=== PATIENT | female | born 1935 | race Caucasian/White ===

== ENCOUNTER → 2016-12-06 | Outpatient (CLI) | payer MEDICARE | END | disposition home or self-care (01) | LOC: GMAJ 10:30 | PROVIDERS: ATTEND Family Medicine | DX: E03.9 Hypothyroidism, unspecified (principal); E53.9 Vitamin B deficiency, unspecified ==

== ENCOUNTER → 2017-12-26 | Outpatient (CLI) | payer MEDICARE | LOC: GMAJ 11:06 | PROVIDERS: ATTEND Family Medicine | DX: E03.9 Hypothyroidism, unspecified (principal); E53.8 Deficiency of other specified B group vitamins ==

== ENCOUNTER → 2018-07-11 | Outpatient (CLI) | payer MEDICARE | LOC: GMAJ 10:31 | PROVIDERS: ATTEND Family Medicine | DX: E53.8 Deficiency of other specified B group vitamins (principal); E03.9 Hypothyroidism, unspecified ==

== ENCOUNTER → 2019-04-18 | Outpatient (CLI) | payer MEDICARE | LOC: GMAJ 11:03 | PROVIDERS: ATTEND Family Medicine | DX: E53.8 Deficiency of other specified B group vitamins (principal); E03.9 Hypothyroidism, unspecified; E78.00 Pure hypercholesterolemia, unspecified ==

== ENCOUNTER → 2019-10-30 | Outpatient (CLI) | payer MEDICARE | LOC: GMAJ 10:20 | PROVIDERS: ATTEND Family Medicine | DX: E53.8 Deficiency of other specified B group vitamins (principal); E03.9 Hypothyroidism, unspecified; E78.00 Pure hypercholesterolemia, unspecified ==

== ENCOUNTER 2020-04-23 10:46 | Observation (INO) | payer OTHER ==
--- NOTE | 2020-04-23 10:46 | HP ---
SUPERVISING PHYSICIAN: Lamonte Muir M.D. CHIEF COMPLAINT: Nausea and vomiting with weakness. HISTORY OF PRESENT ILLNESS: This is an 84 year-old female patient that was in her usual state of health. Her is in a local half-way. She had contact with a caregiver that fed her at the half-way. Her is COVID-19 positive. Over the last week or so she has had contact with them, although both have worn masks and he was diagnosed about 10 days ago with COVID- 19. About 3 or 4 days ago, the patient experienced some nausea and vomiting and extreme weakness. She did notice that she has lost over 10 pounds in the last week to 10 days. Yesterday she called her primary care physician, Dr. Lamonte Muir, who recommended that she be COVID tested. She tested positive yesterday at [facility]. A Telemedicine visit was done this morning and the patient was very weak. She continued to have some nausea and vomiting. She was unable to even sit on the side of the bed. Dr. Muir also spoke with her son and said that she has been progressively worsening over the last few days, so she was sent to the hospital as a direct admission. PAST MEDICAL HISTORY: 1. SVT. 2. Hypothyroidism. 3. Osteoporosis. 4. Gastroesophageal reflux disease. 5. Depression. PAST SURGICAL HISTORY: 1. LEEP procedure. 2. Cataract removal. CURRENT MEDICATIONS: ALLERGIES: NO KNOWN DRUG ALLERGIES. FAMILY HISTORY: Noncontributory. SOCIAL HISTORY: She is retired. She is . She has 2 children. She denies any tobacco, ETOH or illicit drug use. REVIEW OF SYSTEMS: GENERAL: Positive for chills, night sweats and fatigue. Positive for 10 pound weight loss over the last week. HEENT: Negative for sinus symptoms, ear pain, vision changes or sore throat. She is positive for an inability to taste or smell. RESPIRATORY: Positive for mild shortness of breath. Negative for coughing or wheezing. CARDIAC: Negative for chest pain, palpitations or tachycardia. GASTROINTESTINAL: Positive for nausea and vomiting. Negative for diarrhea or constipation. GENITOURINARY: Negative for hematuria, dysuria or polyuria. SKIN: Negative for lesions or rashes. NEUROLOGIC: Positive for extreme weakness. Negative for headaches or seizures. PHYSICAL EXAMINATION: VITAL SIGNS: Unavailable. GENERAL: This is an 84 year-old female patient who looks to be moderately ill, but she does look younger than her stated age. HEENT: Normocephalic, atraumatic. Pupils are equal and reactive. Oropharynx is clear. NECK: Supple without mass. RESPIRATORY: Diminished breath sounds throughout. CHEST: There is equal rise and fall of the chest with inspiration and expiration. CARDIOVASCULAR: Regular rate and rhythm. GASTROINTESTINAL: Abdomen is soft. It is mildly but diffusely tender. Bowel sounds are positive. GENITOURINARY: Deferred. SKIN: Warm and dry. NEUROLOGIC: Awake, alert and oriented times three. LABORATORY: WBCs are 3.7 with hemoglobin 13.7, hematocrit 41. Absolute lymphocytes are 0.9. PT 9.8, INR is less than 1, PTT is 26.2, fibrinogen 359, D-dimer 497. Electrolytes are basically within normal limits. Ferritin is 56.7. LDH is 114, CPK 28, troponin less than 0.02, CRP is 0.9 with a BNP of 28. Blood cultures have been done. Chest x-ray shows normal portable chest. ASSESSMENT: 1. Positive COVID-19 with lymphopenia and low WBC and an elevated D-dimer of 497. 2. Nausea and vomiting with loss of smell and taste. She has also had a weight loss of over 10 pounds in the last week. 3. Hypothyroidism. 4. Gastroesophageal reflux disease. 5. Depression. PLAN: The patient has been admitted to the hospital. We will continue on the COVID guidelines, including daily lab as well as azithromycin and Rocephin. She will also get Decadron 6 mg daily. She will be on Lovenox 40 mg daily. She will be on a full liquid diet and NPO at midnight as I will do a CTA and a CT of her abdomen and pelvis tomorrow morning. I will give her some judicious fluids overnight and repeat her labs in the morning. I have also put her on some Xopenex p.r.n. treatments. Will encourage incentive spirometry as well as good pulmonary hygiene. She has antiemetics. Will continue to monitor closely and follow as needed. #[id number] [facility]
[2020-04-23] MEDS ORDERED: SODIUM CHLORIDE 0.9% (FLUSH) 10 ML SYG IV PRN (11:30)
--- NOTE | 2020-04-23 12:02 | RAD ---
EXAM DESCRIPTION: Chest,1 View CLINICAL HISTORY: Pneumonia COMPARISON: 07 Mar 2015, 16 November 2018 TECHNIQUE: AP portable chest FINDINGS: The lungs are clear. There is no infiltrate or effusion. The heart is normal size. IMPRESSION: Normal portable chest Electronically signed by: Jose Rizo MD 04/23/2020 12:00 PM CDT
[2020-04-23] MEDS: IV SET AND CAP CHANGE INJ INJ SCH (12:43)
[2020-04-23] MEDS: ENOXAPARIN SODIUM 40 MG/0.4 ML SYG SUBCU SCH (13:01)
[2020-04-23] MEDS: cefTRIAXone SODIUM 1 GM in SODIUM CHL 0.9% 50ML MIN-BAG+ 50 ML IVPB SCH (13:01)
[2020-04-23] MEDS: DEXAMETHASONE INJ 10 MG/ML VIAL IV SCH (13:01)
[2020-04-23] MEDS: AZITHROMYCIN IV 500 MG in SODIUM CHLORIDE 0.9% 250ML 250 ML IVPB SCH (13:47)
[2020-04-23] MEDS ORDERED: ONDANSETRON INJ 4 MG/2 ML VIAL IV PRN (15:57)
[2020-04-23] MEDS ORDERED: ACETAMINOPHEN 325 MG TAB PO PRN (15:58)
[2020-04-23] MEDS ORDERED: KCL 20MEQ/0.45% NS 1,000 ML IVS ONE (18:53)
[2020-04-23] MEDS ORDERED: GABAPENTIN 300 MG CAP ONE (19:35)
[2020-04-23] MEDS: GABAPENTIN 300 MG CAP PO SCH (21:29)
[2020-04-24] MEDS ORDERED: LEVOTHYROXINE SODIUM 0.112 MG TAB ONE (04:34)
[2020-04-24] MEDS ORDERED: PANTOPRAZOLE SODIUM IV 40 MG VIAL ONE (04:34)
[2020-04-24] MEDS: PANTOPRAZOLE SODIUM IV 40 MG VIAL IV SCH (06:13)
[2020-04-24] MEDS: LEVOTHYROXINE SODIUM 0.112 MG TAB PO SCH (06:13)
--- NOTE | 2020-04-24 06:56 | RAD ---
EXAM: XR Chest, 1 View CLINICAL HISTORY: Pneumonia TECHNIQUE: Frontal view of the chest. COMPARISON: 04/23/2020. FINDINGS: Lungs: Stable interstitial scarring. No consolidation. Pleural space: Unremarkable. No pneumothorax. Heart: Unremarkable. No cardiomegaly. Mediastinum: Unremarkable. Bones/joints: Unremarkable. IMPRESSION: No acute findings in the chest. Electronically signed by: Nettie Sanchez MD 04/24/2020 6:54 AM CDT
--- NOTE | 2020-04-24 07:00 | CT ---
EXAM: CT Abdomen and Pelvis With Intravenous Contrast CLINICAL HISTORY: n/v; wt loss; covid-19 TECHNIQUE: Axial computed tomography images of the abdomen and pelvis with intravenous contrast. Sagittal and coronal reformatted images were created and reviewed. This CT exam was performed using one or more of the following dose reduction techniques: automated exposure control, adjustment of the mA and/or kV according to patient size, and/or use of iterative reconstruction technique. COMPARISON: No relevant prior studies available. FINDINGS: Lung bases: Linear scarring in the left lung base. ABDOMEN: Liver: Granulomata in the liver. Gallbladder and bile ducts: Unremarkable. No calcified stones. No ductal dilation. Pancreas: Unremarkable. No mass. No ductal dilation. Spleen: Granulomata in the spleen. Adrenals: Unremarkable. No mass. Kidneys and ureters: Tiny cortical cysts in each kidney. No hydronephrosis. Stomach and bowel: Moderate colonic stool. No inflammatory process or obstruction. No mucosal thickening. PELVIS: Appendix: No findings to suggest acute appendicitis. Bladder: Unremarkable. No mass. Reproductive: Unremarkable as visualized. ABDOMEN and PELVIS: Intraperitoneal space: Unremarkable. No free air. No significant fluid collection. Bones/joints: Degenerative changes present in the spine. The bones are demineralized. No acute fracture. No dislocation. Soft tissues: Unremarkable. Vasculature: Atherosclerosis. No aneurysm or dissection. Lymph nodes: Unremarkable. No enlarged lymph nodes. IMPRESSION: Chronic changes as above. No acute disease. Electronically signed by: Nettie Sanchez MD 04/24/2020 6:59 AM CDT
--- NOTE | 2020-04-24 07:03 | CT ---
CT angiogram chest with contrast on 04/24/2020 CLINICAL INDICATION: Abnormal weight loss, COVID 19, nausea and vomiting TECHNIQUE: Multiple axial images are obtained throughout the chest following the administration of IV contrast. Computer generated 3D reconstructions/MIPS were performed. This exam was performed according to our departmental dose-optimization program, which includes automated exposure control, adjustment of the mA and/or kV according to patient size and/or use of iterative reconstruction technique. Total DLP is 586.18 mGy*cm. COMPARISON: None FINDINGS: There is no thoracic aortic aneurysm or dissection. There is no pleural or pericardial effusion. Limited visualized upper abdomen is unremarkable. There is no thoracic adenopathy. There are no filling defects within the pulmonary arteries to suggest pulmonary embolus. Mild biapical pulmonary scarring is noted. There is minimal bibasilar atelectasis or scarring. The lungs are otherwise clear. No acute bony abnormality is noted. IMPRESSION: 1. No evidence of pulmonary embolus. 2. No CT findings to indicate pneumonia. Note: CT may be negative in the early stages of COVID 19 pneumonia. [PneNeg] Electronically signed by: Tanmay Lr 04/24/2020 7:01 AM CDT
[2020-04-24] MEDS ORDERED: MAGNESIUM HYDROXIDE 30 ML UD PO ONE (08:12)
[2020-04-24] MEDS: CITALOPRAM HBR 20 MG TAB PO SCH (08:59)
[2020-04-24] MEDS: DEXAMETHASONE INJ 10 MG/ML VIAL IV SCH (09:00)
[2020-04-24] MEDS ORDERED: LEVALBUTEROL NEBS 1.25 MG/3 ML VIAL NEB PRN ×2 (12:27→12:28)
[2020-04-24] MEDS ORDERED: MORPHINE SULFATE INJ 10 MG/ML VIAL IV PRN (12:35)
[2020-04-24] MEDS ORDERED: SCOPOLAMINE PATCH 1.5MG 1 EA TD PRN (12:36)
[2020-04-24] MEDS ORDERED: PROMETHAZINE HCL INJ 25 MG in SODIUM CHLORIDE 0.9% 50ML 50 ML IVPB PRN (12:36)
[2020-04-24] MEDS: ENOXAPARIN SODIUM 40 MG/0.4 ML SYG SUBCU SCH (12:44)
[2020-04-24] MEDS: cefTRIAXone SODIUM 1 GM in SODIUM CHL 0.9% 50ML MIN-BAG+ 50 ML IVPB SCH (12:44)
[2020-04-24] MEDS: AZITHROMYCIN IV 500 MG in SODIUM CHLORIDE 0.9% 250ML 250 ML IVPB SCH (13:20)
[2020-04-24] MEDS: GABAPENTIN 300 MG CAP PO SCH (21:24)
[2020-04-25] MEDS: PANTOPRAZOLE SODIUM IV 40 MG VIAL IV SCH (05:39)
[2020-04-25] MEDS: LEVOTHYROXINE SODIUM 0.112 MG TAB PO SCH (05:39)
[2020-04-25] MEDS: DEXAMETHASONE INJ 10 MG/ML VIAL IV SCH (08:21)
[2020-04-25] MEDS: CITALOPRAM HBR 20 MG TAB PO SCH (08:21)
--- NOTE | 2020-04-25 09:01 | PN ---
SUPERVISING PHYSICIAN: Lamonte Muir MD DATE: 04/24/20 SUBJECTIVE: The patient is sitting up in her bed. She still looks rather weak and has continued complaints of extremely weakness, although she is slightly improved from yesterday. She has no shortness of breath, nausea or vomiting. OBJECTIVE: VITAL SIGNS: Temperature 98.3, heart rate 73, blood pressure 109/60, respiratory rate 19, oxygen saturation 95% on room air. RESPIRATORY: Essentially clear to auscultation bilaterally. CARDIAC: Regular rate and rhythm. GI: Abdomen soft, slightly and diffuse tender over the upper regions of her abdomen. Bowel sounds are positive. NEUROLOGIC: She is awake, alert, and oriented x3. LABORATORY: CBC is basically unremarkable except she has a left shift on her differential. D-dimer is improved to 270. Fibrinogen is 366. Chemistries are basically within normal limits. Preliminary blood cultures show no growth after 24 hours. Chest and thorax CTA: 1. No evidence of pulmonary embolus. 2. No CT findings to indicate pneumonia but CT may be negative and in the early stages of Covid-19. Abdomen and pelvis CT shows chronic changes seen in the report. No acute disease. Chest x-ray shows no acute findings. All other labs and films have been reviewed via the EMR. ASSESSMENT: 1. Positive COVID-19 with lymphopenia and low WBC and an elevated D-dimer of 497. 2. Nausea and vomiting with loss of smell and taste. She has also had a weight loss of over 10 pounds in the last week. 3. Hypothyroidism. 4. Gastroesophageal reflux disease. 5. Depression. PLAN: We will continue present supportive care. The patient is still very weak and her symptoms have only slightly improved. We will need to monitor her closely over the next few days. She has no longer had any nausea or vomiting but she is still quite tender in her abdomen. Due to her Covid-19 status, we will watch patient closely over the next few days. We will continue aggressive pulmonary hygiene and continue the Covid-19 guidelines and will monitor closely and follow as needed. [facility][id number] [facility]
[2020-04-25] MEDS: cefTRIAXone SODIUM 1 GM in SODIUM CHL 0.9% 50ML MIN-BAG+ 50 ML IVPB SCH (12:01)
[2020-04-25] MEDS: ENOXAPARIN SODIUM 40 MG/0.4 ML SYG SUBCU SCH (12:01)
[2020-04-25] MEDS: AZITHROMYCIN IV 500 MG in SODIUM CHLORIDE 0.9% 250ML 250 ML IVPB SCH (13:01)
[2020-04-25] MEDS: GABAPENTIN 300 MG CAP PO SCH (21:21)
[2020-04-26] MEDS: LEVOTHYROXINE SODIUM 0.112 MG TAB PO SCH (05:56)
[2020-04-26] MEDS: PANTOPRAZOLE SODIUM IV 40 MG VIAL IV SCH (05:56)
--- NOTE | 2020-04-26 08:36 | PN ---
SUPERVISING PHYSICIAN: Lamonte Muir MD DATE: 04/25/20 SUBJECTIVE: Unfortunately, the patient's passed this morning form complications of Covid-19. Considering everything that has been done, has been fairly well. She is scared to go home because she has remained in isolation and is still having a little bit of diarrhea and is quite weak actually. Otherwise, she has no other complaints. OBJECTIVE: VITAL SIGNS: Temperature 98, heart rate 60, blood pressure 116/52, respiratory rate 18, oxygen saturation 97% on room air. GENERAL: The patient does not look to be in any distress. She does look exhausted, simply just because of the event that occurred this morning. Otherwise, she does not look to be in any acute distress. RESPIRATORY: Lung sounds are fairly clear, a little diminished toward the bases. CARDIAC: Regular rate and rhythm. GI: Abdomen soft, still a little the next several days on the upper regions, across left and right. Bowel sounds are positive. NEUROLOGIC: She is awake, alert, and oriented x3. LABORATORY: CBC shows a white count yesterday of 6,000 with a slight left shift. Coagulation studies yesterday did show a D-dimer that was down to 270 from 497 previously. Electrolytes within normal limits with creatinine of 0.56. RADIOLOGY: No additional radiographic studies this morning. I did review the chest CTA from yesterday which did show per radiology interpretation, no evidence of pulmonary embolus, no actual findings to indicate pneumonia. ASSESSMENT: 1. Positive COVID-19 with lymphopenia, neutropenia, elevated D-dimer associated GI symptoms. 2. Nausea and vomiting with some weight loss over the last week of about 10 pounds. 3. Hypothyroidism on supplementation. 4. Gastroesophageal reflux disease. 5. Depression. PLAN: At this point, the patient is a little weak and considering her passed this morning, she certainly a little emotional. I have no plans to discharge her probably until at least Monday given the event that occurred and the fact that she will still remain in isolation and there is no family to help her at home and she is in early stages of possible Covid pneumonia more based off her event today with close monitoring. In regard to GI symptoms, she is a little bit tender but not having any nausea or vomiting. She has tolerated a diet. I did advance her diet this afternoon and she did okay with that. Until we can transition her to outpatient management, we will continue to monitor and treat as needed. [facility][id number] [facility]
[2020-04-26] MEDS: DEXAMETHASONE INJ 10 MG/ML VIAL IV SCH (08:37)
[2020-04-26] MEDS: CITALOPRAM HBR 20 MG TAB PO SCH (08:37)
[2020-04-26] MEDS: ENOXAPARIN SODIUM 40 MG/0.4 ML SYG SUBCU SCH (12:02)
[2020-04-26] MEDS: cefTRIAXone SODIUM 1 GM in SODIUM CHL 0.9% 50ML MIN-BAG+ 50 ML IVPB SCH (12:02)
[2020-04-26] MEDS: IV SET AND CAP CHANGE INJ INJ SCH (12:02)
[2020-04-26] MEDS: AZITHROMYCIN IV 500 MG in SODIUM CHLORIDE 0.9% 250ML 250 ML IVPB SCH (12:55)
[2020-04-26] MEDS: GABAPENTIN 300 MG CAP PO SCH (20:55)
--- NOTE | 2020-04-26 22:05 | PN ---
SUPERVISING PHYSICIAN: Lamonte Muir M.D. DATE: 04/26/20 SUBJECTIVE: The patient is still of course depressed secondary to the passing of her yesterday. Overall the patient seems to be doing fairly well. She is in much better spirits today. She has visitors outside her window. They are actually leaving her messages on the window. She has not had any diarrhea but she does note that she is pretty weak when she gets up to move around. OBJECTIVE: VITAL SIGNS: Temperature 97.9, pulse 71, blood pressure 111/66, respirations 18, satting 94% on room air. GENERAL: The patient does not look to be in any distress. She does look exhausted, simply just because of the event that occurred this morning. Otherwise, she does not look to be in any acute distress. RESPIRATORY: Lung sounds are fairly clear, a little diminished toward the bases. CARDIAC: Regular rate and rhythm. GI: Abdomen still remains soft. Does not seem to be as tender today across the upper quadrants. Bowel sounds are positive. NEUROLOGIC: She is awake, alert, and oriented x3. LABORATORY: No additional laboratory reports. RADIOLOGY: No additional radiographic studies. ASSESSMENT: 1. Positive COVID-19 with lymphopenia, neutropenia, elevated D-dimer associated GI symptoms. 2. Nausea and vomiting with some weight loss over the last week of about 10 pounds. 3. Hypothyroidism on supplementation. 4. Gastroesophageal reflux disease. 5. Depression. PLAN: Will continue with current plan of care at this point. I did discuss with her going home. She is afraid to go home as she is not sure if she can handle going home by herself both emotionally and physically because she wants to keep her kids isolated since she is positive for COVID-19. I discussed the plan of care with her primary care provider to see what his thoughts are, Dr. Muir. In regards to her COVID pneumonia, she does not seem to be having any additional symptoms. Still remaining on O2 on room air without any effort, although she is weak. She is still working to advance her diet. Of course she does not have much of an appetite. Hopefully we can transition her home for outpatient management within the next 2 to 3 days. Again her situation is a little exceptional due to the fact that her passed yesterday. Until then will continue to monitor and treat as needed. [facility][id number] [facility]
[2020-04-26] MEDS ORDERED: TEMAZEPAM 15 MG CAP PO PRN (22:25)
[2020-04-27] MEDS: PANTOPRAZOLE SODIUM IV 40 MG VIAL IV SCH (06:11)
[2020-04-27] MEDS: LEVOTHYROXINE SODIUM 0.112 MG TAB PO SCH (06:11)
[2020-04-27] MEDS: DEXAMETHASONE INJ 10 MG/ML VIAL IV SCH (09:04)
[2020-04-27] MEDS: CITALOPRAM HBR 20 MG TAB PO SCH (09:04)
[2020-04-27] MEDS: ENOXAPARIN SODIUM 40 MG/0.4 ML SYG SUBCU SCH (11:57)
[2020-04-27] MEDS: cefTRIAXone SODIUM 1 GM in SODIUM CHL 0.9% 50ML MIN-BAG+ 50 ML IVPB SCH (11:57)
[2020-04-27] MEDS: AZITHROMYCIN IV 500 MG in SODIUM CHLORIDE 0.9% 250ML 250 ML IVPB SCH (11:57)
[2020-04-27 14:30] VITALS: BP 113/57; TEMP 97.6; O2SAT 95
== END 2020-04-27 15:43 | disposition home or self-care (01) ==
LOC: UNDOADMIN 10:46 → MS 10:46 → UNDOADMIN 04-24 10:14 → INTOOBSV 04-24 10:14
PROVIDERS: ADMIT Nurse Practitioner Acute Care; ATTEND Nurse Practitioner Acute Care
DX: U07.1 COVID-19 (principal); D72.810 Lymphocytopenia; D70.9 Neutropenia, unspecified; R79.89 Other specified abnormal findings of blood chemistry; R11.2 Nausea with vomiting, unspecified; R63.4 Abnormal weight loss; Z68.1 Body mass index [BMI] 19.9 or less, adult; R53.1 Weakness; E03.9 Hypothyroidism, unspecified; K21.9 Gastro-esophageal reflux disease without esophagitis; F43.21 Adjustment disorder with depressed mood; M81.0 Age-related osteoporosis without current pathological fracture

== ENCOUNTER → 2020-05-08 | Outpatient (CLI) | payer OTHER | LOC: NC 10:20 | PROVIDERS: ATTEND Family Medicine | DX: B34.2 Coronavirus infection, unspecified (principal); E03.9 Hypothyroidism, unspecified ==

== ENCOUNTER → 2020-06-03 | Outpatient (CLI) | payer OTHER | END | disposition home or self-care (01) | LOC: NC 08:36 | PROVIDERS: ATTEND Family Medicine | DX: E53.8 Deficiency of other specified B group vitamins (principal); U07.1 COVID-19 ==

== ENCOUNTER → 2020-06-11 | Outpatient (CLI) | payer OTHER | LOC: GMAJ 15:00 | PROVIDERS: ATTEND Family Medicine | DX: E03.9 Hypothyroidism, unspecified (principal); R06.02 Shortness of breath; B97.21 SARS-associated coronavirus as the cause of diseases classified elsewhere ==